=== PATIENT | female | born 1960 | race African-American/Black ===

== ENCOUNTER 2025-04-26 17:35 | Emergency (ER) | payer MEDICAID ==
[~2025-04-26] VITALS: Ht 154.9 cm; Wt 98.4 kg
[2025-04-26 17:36] VITALS: BP 144/82; PULSE 76; RESP 15; TEMP 98.4; O2SAT 98
== END 2025-04-26 18:45 | disposition left against medical advice (07) ==
LOC: ER 17:35
DX: R05.9 Cough, unspecified (principal); Z53.21 Procedure and treatment not carried out due to patient leaving prior to being seen by health care provider